=== PATIENT | male | born 1940 | race Caucasian/White ===

== ENCOUNTER 2017-05-30 05:37 | Emergency (ER) | payer OTHER ==
[~2017-05-30] VITALS: Ht 170.2 cm; Wt 79.4 kg
[~2017-05-30 05:37] MED LIST: ASPI81CH43; ATEN-60; CALC500T27; EZET10TA38; FLUT27.52; ISOS30TA17 OR; LISI-275; LORA-59; LORA2TAB89; OXAZEPAM; PRO10T; TRAM50TA2
[2017-05-30] MEDS ORDERED: MORPHINE SULFATE 4 MG/ML SYRG IV ONE (06:30)
[2017-05-30] MEDS ORDERED: ONDANSETRON HCL 4 MG/2 ML VIAL IV ONE ×3 (06:30→14:45)
[2017-05-30] MEDS ORDERED: NITROGLYCERIN 0.4 MG SL TAB SL ONE (06:33)
[2017-05-30 06:35] LABS: Basophils # (auto) 0 uL; Basophils % (auto) 0.1 % (0.0-2.0); Eosinophils # (auto) 0.1 uL; Eosinophils % (auto) 0.4 % (0.0-7.0); Hematocrit 49.7 % (41.0-53.0); Hemoglobin 16.5 g/dL (13.5-17.5); Lymphocytes # (auto) 0.6 uL; Lymphocytes % (auto) 3.3 % (10.0-50.0); Mean Corpuscular Hemoglobin 32.5 pg (28.0-32.0); Mean Corpuscular Hgb Conc. 33.3 g/dL (32.0-36.0); Mean Corpuscular Volume 97.7 fL (80.0-100.0); Mean Platelet Volume 7.7 fL (6.9-10.8); Monocytes # (auto) 1.1 uL; Monocytes % (auto) 5.7 % (0.0-12.0); Neutrophils # (auto) 16.8 uL; Neutrophils % (auto) 90.5 % (37.0-80.0); Nucleated Red Blood Cells % 0.1 %; Platelet Count (auto) 198 10^3/uL (140-450); White Blood Cell 18.5 10^3/uL (4.4-10.8)
[2017-05-30 06:50] LABS: INR 1.06 (0.9-1.15); Partial Thromboplastin Time 25.4 sec (22.64-33.71); Prothrombin Time 11.6 sec (9.37-12.3)
[2017-05-30] MEDS ORDERED: SODIUM CHLORIDE 0.9% 1,000 ML IV ONE (07:11)
[2017-05-30 07:12] LABS: Albumin 3.8 g/dL (3.4-5.0); Anion Gap 11 (5-15); Aspartate Aminotransferase 15 U/L (15-37); BUN/Creatinine Ratio 31.7; Blood Urea Nitrogen 40 mg/dL (7-18); Calcium 8.4 mg/dL (8.5-10.1); Carbon Dioxide 20 mmol/L (21-32); Chloride 106 mmol/L (98-107); GFR African American 71 mL/min; GFR Non-African American 59 mL/min; Glucose 155 mg/dL (74-106); Potassium 4.3 mmol/L (3.5-5.1); Sodium 137 mmol/L (136-145)
[2017-05-30 07:17] LABS: Alkaline Phosphatase 104 U/L (45-117); Bilirubin, Total 0.7 mg/dL (0.2-1.0); Total Protein 7.4 g/dL (6.4-8.2)
[2017-05-30 07:21] LABS: Urine RBC None Seen /hpf (0 - 3)
[2017-05-30 07:30] LABS: Urine Bilirubin Negative (Negative); Urine Blood Negative /uL (Negative); Urine Color Yellow (Yellow); Urine Glucose Normal (Normal); Urine Ketone TRACE (Negative); Urine Mucus FEW (None Seen); Urine Nitrite Negative (Negative); Urine Squamous Epithelial Cell FEW /hpf (<5); Urine Urobilinogen Normal (Negative)
[2017-05-30 07:57] LABS: B-Type Natriuretic Peptide 55.62 pg/mL (0-100)
[2017-05-30] MEDS ORDERED: ONDANSETRON HCL 4 MG/2 ML VIAL ONE (08:00)
[2017-05-30] MEDS ORDERED: LOSA50TA6 PO (08:55)
[2017-05-30] MEDS ORDERED: SERT-135 PO (08:55)
[2017-05-30] MEDS ORDERED: ATO40T PO (08:55)
[2017-05-30] MEDS ORDERED: ZOLP5TAB5 PO (08:55)
[2017-05-30] MEDS ORDERED: AZEL0.054 OP (08:55)
[2017-05-30] MEDS ORDERED: CARB25TA3 PO (08:55)
[2017-05-30] MEDS ORDERED: ACETAMINOPHEN 325 MG TAB PO ONE ×2 (13:46→14:00)
[2017-05-30 15:47] VITALS: BP 134/78
== END 2017-05-30 16:05 | disposition short-term general hospital (02) ==
LOC: EDBD 05:37 → EDUNIT# 05:37 → ER 05:44
DX: R07.9 Chest pain, unspecified (principal); I25.2 Old myocardial infarction; I11.0 Hypertensive heart disease with heart failure; I50.9 Heart failure, unspecified; J44.9 Chronic obstructive pulmonary disease, unspecified; I25.810 Atherosclerosis of coronary artery bypass graft(s) without angina pectoris; Z95.1 Presence of aortocoronary bypass graft; Z98.61 Coronary angioplasty status; Z79.899 Other long term (current) drug therapy; Z88.6 Allergy status to analgesic agent
CPT/HCPCS: 36415; 71010; 80053; 81001; 83735; 83880; 84443; 84484; 85025; 85379; 85610; 85730; 93005; 94761; 96361; 96374; 96375; 96376; 99285; J2270; J2405; J7030